=== PATIENT | male | born 1940 | race Caucasian/White ===

== ENCOUNTER 2022-03-21 23:02 | Inpatient (IN) ==
[2022-03-22] MEDS ORDERED: FUROSEMIDE 40 MG/4 ML VIAL IV STA ×2 (01:04→03:09)
[2022-03-22] MEDS ORDERED: ASPIRIN 325 MG TABLET PO STA (01:04)
[2022-03-22 01:11] LABS: Eosinophils % 1.1 % (0.00-10.9); Hematocrit 26.7 VOL% (42.0-52.0); Hemoglobin 8.7 GM/DL (14.0-18.0); Immature Granulocytes % 1.1 %; Immature Granulocytes Absolute 0.01 #; Lymphocytes # 0.2 10*3/uL (1.4-4.0); Lymphocytes % 17.2 % (21.2-54.2); Mean Corpuscular HGB Conc 32.6 GM/DL (32-36); Mean Corpuscular Volume 97.4 FL (87-102); Mean Platelet Volume 11.1 FL (9.6-12.0); Monocytes % 3.4 % (1.7-12.7); NRBC # 0.02 10*3/uL; Neutrophils % 77.2 % (38.7-73.9); Platelet Count 111 T/CUMM (130-400); Red Blood Count 2.74 MC/CUMM (3.8-5.5); Red Cell Distribution Width 14.1 % (9.3-17.3)
[2022-03-22 01:14] LABS: White Blood Count 0.9 T/CUMM (4-12)
[2022-03-22 01:23] LABS: Albumin 2.8 G/DL (3.4-5.0); Calcium 7.9 MG/DL (8.5-10.1); Osmolality,Calculated 283.3 MOS/KG (273-304); Potassium 4.1 MMOL/L (3.5-5.1); Total Protein 5.1 G/DL (6.4-8.2)
[2022-03-22 01:35] LABS: Band Neutrophils 3 % (0-10); Hypochromia Slight; Lymphocytes 16 % (20-55); Nucleated Red Blood Cells 2 /100 WBC (0-5); Platelet Estimate Normal; Total Cells Counted 100
[2022-03-22] MEDS ORDERED: MEROPENEM 500 MG in SODIUM CHLORIDE 0.9% 100 ML IV ONE (02:01)
[2022-03-22] MEDS ORDERED: HEPARIN 5,000 UNIT/1 ML VIAL IV ONE ×2 (02:04→18:45)
[2022-03-22 02:07] LABS: Arterial Base Excess iSTAT -6 MMOL/L (-2.5-2.5); Arterial Bicarbonate iSTAT 16.2 MMOL/L (20-26); Arterial O2 Saturation iSTAT 91 % (95-100); Arterial PCO2 iSTAT 22 MM HG (35-48); Arterial PO2 iSTAT 54 MM HG (80-95); Arterial Total CO2 iSTAT 17 MMO/L (23-27); Arterial pH iSTAT 7.486 (7.35-7.45)
[2022-03-22] MEDS ORDERED: MORPHINE 2 MG/1 ML SYRINGE IV PRN (03:06)
[2022-03-22] MEDS ORDERED: ONDANSETRON 4 MG/2 ML VIAL IV PRN (03:06)
[2022-03-22] MEDS ORDERED: ACETAMINOPHEN 325 MG TABLET PO PRN (03:06)
[2022-03-22] MEDS ORDERED: ALBUTEROL 2.5 MG/3 ML NEB RESP TX PRN (03:06)
[2022-03-22] MEDS ORDERED: PHENYLEPHRINE DRIP 40 MG/250 ML PREMIX IV ONE (03:16)
[2022-03-22] MEDS: PHENYLEPHRINE DRIP 40 MG/250 ML PREMIX IV PRN ×5 (03:18→11:25)
[2022-03-22] MEDS ORDERED: MIDAZOLAM 10 MG/2 ML VIAL ONE (03:25)
[2022-03-22] MEDS ORDERED: ROCURONIUM 100 MG/10 ML VIAL IV ONE (03:26)
[2022-03-22] MEDS ORDERED: ETOMIDATE 20 MG/10 ML VIAL IV ONE (03:26)
[2022-03-22] MEDS: MIDAZOLAM DRIP 100 MG/100 ML PREMIX IV PRN ×2 (03:37→22:50)
[2022-03-22] MEDS ORDERED: ETOMIDATE 20 MG/10 ML VIAL IV STA (03:46)
[2022-03-22] MEDS ORDERED: ROCURONIUM 100 MG/10 ML VIAL IV STA (03:46)
[2022-03-22] MEDS ORDERED: SODIUM CHLORIDE 0.9% 500 ML IV ONE ×2 (04:45→06:39)
[2022-03-22] MEDS ORDERED: LEVOFLOXACIN INJ 750 MG/150 ML PREMIX IV SCH (05:00)
[2022-03-22 05:10] LABS: ABG Base Excess -7.3 MMOL/L (-2.5-2.5); ABG HCO3 18.3 MMOL/L (20-26); ABG Oxygen Saturation 93.6 % (95-100); ABG PCO2 50.8 MM HG (35-48); ABG PH 7.212 (7.35-7.45); ABG PO2 94.2 MM HG (80-95); ABG TCO2 19.5 MMOL/L (23-27)
[2022-03-22] MEDS: NOREPINEPHRINE DRIP 8 MG/250 ML PREMIX IV PRN ×4 (06:39→23:20)
[2022-03-22 06:46] LABS: Hematocrit 23.5 VOL% (42.0-52.0); Hemoglobin 7.4 GM/DL (14.0-18.0); Immature Granulocytes % 3.1 %; Immature Granulocytes Absolute 0.01 #; Lymphocytes # 0.1 10*3/uL (1.4-4.0); Lymphocytes % 28.1 % (21.2-54.2); Mean Corpuscular HGB Conc 31.5 GM/DL (32-36); Mean Corpuscular Volume 99.6 FL (87-102); Mean Platelet Volume 11.7 FL (9.6-12.0); Monocytes # 0.1 10*3/uL (0.11-0.8); Monocytes % 18.8 % (1.7-12.7); NRBC # 0.03 10*3/uL; Platelet Count 147 T/CUMM (130-400); Red Blood Count 2.36 MC/CUMM (3.8-5.5); Red Cell Distribution Width 14.2 % (9.3-17.3)
[2022-03-22 06:55] LABS: White Blood Count 0.3 T/CUMM (4-12)
[2022-03-22 07:03] LABS: Albumin 1.9 G/DL (3.4-5.0); Bilirubin,Total 0.6 MG/DL (0.20-1.00); Calcium 7.2 MG/DL (8.5-10.1); Potassium 3.6 MMOL/L (3.5-5.1); Total Protein 3.9 G/DL (6.4-8.2)
[2022-03-22] MEDS ORDERED: SODIUM CHLORIDE 0.9% 1,000 ML IV PRN (07:25)
[2022-03-22 07:28] LABS: Lymphocytes 60 % (20-55); Nucleated Red Blood Cells 1 /100 WBC (0-5); Platelet Estimate Normal
[2022-03-22 07:29] LABS: Hypochromia 1+; Microcytosis Slight; Total Cells Counted 100
[2022-03-22] MEDS: ALBUTEROL/IPRATROPIUM 3 ML NEB RESP TX SCH ×4 (07:36→23:52)
[2022-03-22] MEDS ORDERED: PANTOPRAZOLE 40 MG VIAL IV SCH (09:30)
[2022-03-22] MEDS ORDERED: FILGRASTIM-SNDZ 300 MCG/0.5 ML SYRINGE SUBCUT SCH (12:00)
[2022-03-22] MEDS: PHENYLEPHRINE INJ 160 MG in SODIUM CHLORIDE 0.9% 234 ML IV PRN (13:18)
[2022-03-22] MEDS: MEROPENEM 500 MG in SODIUM CHLORIDE 0.9% 100 ML IV SCH (13:20)
[2022-03-22] MEDS ORDERED: FUROSEMIDE 40 MG/4 ML VIAL IV ONE (17:00)
[2022-03-22] MEDS ORDERED: HEPARIN DRIP 25,000 UNITS/500 ML PREMIX IV SCH (18:30)
[2022-03-22] MEDS ORDERED: fentaNYL INJ 1,250 MCG in SODIUM CHLORIDE 0.9% 225 ML IV PRN (19:53)
[2022-03-22 21:32] VITALS: BP 104/57
[2022-03-22] MEDS ORDERED: EPINEPHrine 1 MG/10 ML SYRINGE IV ONE (21:41)
[2022-03-22] MEDS ORDERED: SODIUM BICARBONATE 50 MEQ/50 ML SYRINGE IV ONE (21:42)
[2022-03-22] MEDS ORDERED: METOPROLOL TARTRATE 5 MG/5 ML VIAL IV ONE (21:45)
[2022-03-22] MEDS ORDERED: VASOPRESSIN 100 UNITS in SODIUM CHLORIDE 0.9% 95 ML IV PRN (21:57)
[2022-03-22 22:00] LABS: ABG Base Excess -8.6 MMOL/L (-2.5-2.5); ABG HCO3 17.6 MMOL/L (20-26); ABG Oxygen Saturation 99.6 % (95-100); ABG PCO2 37.4 MM HG (35-48)
[2022-03-22 22:04] LABS: Basophils % 0.5 % (0.0-0.8); Eosinophils # 0.2 10*3/uL (0.0-0.87); Hematocrit 32.2 VOL% (42.0-52.0); Immature Granulocytes % 0.9 %; Immature Granulocytes Absolute 0.02 #; Lymphocytes # 0.3 10*3/uL (1.4-4.0); Lymphocytes % 11.7 % (21.2-54.2); Mean Corpuscular HGB Conc 32.9 GM/DL (32-36); Mean Corpuscular Volume 96.4 FL (87-102); Monocytes # 0.1 10*3/uL (0.11-0.8); Monocytes % 5.2 % (1.7-12.7); NRBC # 0.03 10*3/uL; Neutrophils % 74.7 % (38.7-73.9); Platelet Count 188 T/CUMM (130-400); Red Blood Count 3.34 MC/CUMM (3.8-5.5); Red Cell Distribution Width 15.6 % (9.3-17.3); White Blood Count 2.1 T/CUMM (4-12)
[2022-03-22 22:06] LABS: Hemoglobin 10.6 GM/DL (14.0-18.0)
[2022-03-22 22:16] LABS: Albumin 1.9 G/DL (3.4-5.0); Bilirubin,Total 0.5 MG/DL (0.20-1.00); Calcium 6.8 MG/DL (8.5-10.1); Potassium 4.1 MMOL/L (3.5-5.1); Total Protein 4.2 G/DL (6.4-8.2)
[2022-03-22] MEDS ORDERED: SODIUM BICARBONATE 50 MEQ/50 ML VIAL IV ONE (22:27)
[2022-03-22] MEDS ORDERED: CALCIUM CHLORIDE 1,000 MG/10 ML SYRINGE IV ONE (22:27)
[2022-03-22 23:06] LABS: Band Neutrophils 4 % (0-10); Eosinophils 9 % (0-10); Hypochromia Slight; Lymphocytes 16 % (20-55); Nucleated Red Blood Cells 3 /100 WBC (0-5); Platelet Estimate Normal; Total Cells Counted 100
[2022-03-23] MEDS: NOREPINEPHRINE DRIP 8 MG/250 ML PREMIX IV PRN (01:11)
[2022-03-23] MEDS: NOREPINEPHRINE 16 MG in SODIUM CHLORIDE 0.9% 234 ML IV PRN ×2 (01:48→05:53)
[2022-03-23] MEDS: MEROPENEM 500 MG in SODIUM CHLORIDE 0.9% 100 ML IV SCH (02:06)
[2022-03-23] MEDS: PHENYLEPHRINE INJ 160 MG in SODIUM CHLORIDE 0.9% 234 ML IV PRN (04:05)
[2022-03-23 04:26] LABS: Basophils % 0.2 % (0.0-0.8); Eosinophils # 0.1 10*3/uL (0.0-0.87); Eosinophils % 1.7 % (0.00-10.9); Hematocrit 36.4 VOL% (42.0-52.0); Hemoglobin 11.8 GM/DL (14.0-18.0); Immature Granulocytes % 13.2 %; Immature Granulocytes Absolute 0.53 #; Lymphocytes # 0.2 10*3/uL (1.4-4.0); Lymphocytes % 5.2 % (21.2-54.2); Mean Corpuscular HGB Conc 32.4 GM/DL (32-36); Mean Corpuscular Volume 97.8 FL (87-102); Mean Platelet Volume 11.8 FL (9.6-12.0); Monocytes # 0.3 10*3/uL (0.11-0.8); Monocytes % 8.2 % (1.7-12.7); Neutrophils % 71.5 % (38.7-73.9); Platelet Count 212 T/CUMM (130-400); Red Blood Count 3.72 MC/CUMM (3.8-5.5); Red Cell Distribution Width 16.3 % (9.3-17.3)
[2022-03-23 04:32] LABS: ABG Base Excess -11.7 MMOL/L (-2.5-2.5); ABG HCO3 15.4 MMOL/L (20-26); ABG Oxygen Saturation 99.3 % (95-100); ABG PCO2 41.2 MM HG (35-48); ABG TCO2 14.7 MMOL/L (23-27)
[2022-03-23 04:50] LABS: Albumin 2.1 G/DL (3.4-5.0); Bilirubin,Total 0.7 MG/DL (0.20-1.00); Calcium 7.8 MG/DL (8.5-10.1); Osmolality,Calculated 287.3 MOS/KG (273-304); Potassium 4.4 MMOL/L (3.5-5.1); Total Protein 4.6 G/DL (6.4-8.2)
[2022-03-23 05:13] LABS: Phosphorous 6.4 MG/DL (2.5-4.9)
[2022-03-23 05:27] LABS: Band Neutrophils 6 % (0-10); Eosinophils 3 % (0-10); Lymphocytes 18 % (20-55); Nucleated Red Blood Cells 7 /100 WBC (0-5); Platelet Estimate Normal; Total Cells Counted 100
[2022-03-23] MEDS ORDERED: SODIUM BICARBONATE 50 MEQ/50 ML VIAL IV ONE (05:45)
[2022-03-23 06:50] LABS: INR 1.8; PT Patient Result 19.3 SECS (10.1-12.1)
[2022-03-23] MEDS: ALBUTEROL/IPRATROPIUM 3 ML NEB RESP TX SCH (07:22)
== END 2022-03-23 09:28 | disposition expired | DRG 871 ==
LOC: EDBD → EDUNIT# → N.ED 23:02 → N.EDINP 03-22 03:06 → N.CC 03-22 04:01
PROVIDERS: ADMIT Internal Medicine; ATTEND Internal Medicine